=== PATIENT | female | born 1970 | race Caucasian/White ===

== ENCOUNTER → 2016-08-13 | Outpatient (CLI) | payer OTHER ==
--- NOTE | 2016-08-14 11:10 | WOMENS IMAGING REPORT ---
EXAM DESCRIPTION: BILAT DIAGNOSTIC MAMMO W/CAD; U/S BREAST UNILAT LIMITED COMPLETED DATE/TIME: 08/13/2016 11:40 am; 08/13/2016 12:30 pm REASON FOR STUDY: BILAT DIAG 3D N63; LT BREAST N63 UNSPECIFIED LUMP IN BREAST COMPARISON: Mammograms 08/26/2011,, 09/20/2015 TECHNIQUE: Standard craniocaudal and mediolateral oblique views of each breast recorded using digita l tomosynthesis acquisition. Additional left breast 90 mediolateral view, mammogram Left breast ultrasound LIMITATIONS: None. FINDINGS: RIGHT BREAST MASSES: No suspicious masses. CALCIFICATIONS: No new or suspicious calcifications. ARCHITECTURAL DISTORTION: None. DEVELOPING DENSITY: None. ASYMMETRY: None noted. OTHER: No other significant findings. LEFT BREAST MASSES: Patient presented with a palpable abnormality left upper outer quadrant. 8 cm from the nippl e in the upper outer quadrant, 2 to 3 o'clock position there is a well-circumscribed mammographic nod ule 11 mm in size. A 2nd, smaller nodule 6 mm in size about 10 to 12 cm from the nipple is also seen at the left breast 1 to 2 o'clock position. CALCIFICATIONS: No new or suspicious calcifications. ARCHITECTURAL DISTORTION: None. DEVELOPING DENSITY: None. ASYMMETRY: None noted. OTHER: No other significant finding. Read with the assistance of CAD: .[facility] - R2 Cenova Version 1.3 .[facility] Imaging - R2 Cenova Version 1.3 .[facility] Imaging - R2 Cenova Version 2.4 .[facility] [place] - R2 Cenova Version 2.4 .[facility] - R2 Quality Process Lead Version 9.2 Left breast ultrasound: In the area of palpable abnormality indicated by the patient, 2 to 3 o'clock position left breast abo ut 8 cm from the nipple there is a solid 1.1 x 0.9 mm nodule with internal color flow. This is indet erminate for malignancy. Ultrasound-guided core biopsy and post biopsy clip placement is recommended for followup. Immediately adjacent to the palpable solid nodule, a benign 4 mm simple cyst is present. More superiorly and medially in the left breast 1 to 2 o'clock position about 10 to 12 cm from the ni pple, a 2nd, smaller solid well-circumscribed nodule is present, 6 x 5 mm in size. This is also inde terminate for malignancy and ultrasound-guided core biopsy and post biopsy clip placement is recommen ded for followup. IMPRESSION: No mammographic/tomosynthesis evidence for malignancy right breast. 2 small solid nodules left upper outer quadrant for which ultrasound-guided core biopsy, post biopsy clip placement, and follow-up immediate two-view mammogram recommended BREAST DENSITY: c. The breasts are heterogeneously dense, which may obscure small masses. BIRAD: 4 Suspicious. Biopsy should be considered. RECOMMENDATION: RECOMMENDED FOLLOW UP: Left breast ultrasound-guided core biopsy of the 11 mm and 6 mm nodule, with post biopsy clip placement and follow-up two-view mammograms SPECIFIC INTERVENTION/IMAGING/CONSULTATION RECOMMENDED:As above COMMUNICATION:These results were discussed Katia VANESSA, 1100 hours 08/14/2016. COMMENT: The patient has been notified of the results by letter per SA requirements. Additional no tification policies are in place for contacting patient with suspicious or incomplete findings. Quality ID #[id number]: The [employer] recommends an annual screening mammogram for women aged 40 years or over. This facility utilizes a reminder system to ensure that all patients receive reminder letters, and/or direct phone calls for appointments. This includes reminders for routine scr eening mammograms, diagnostic mammograms, or other Breast Imaging Interventions when appropriate. Th is patient will be placed in the appropriate reminder system. The [employer] (ACR) has developed recommendations for screening MRI of the breast s in certain patient populations, to be used in conjunction with mammography. Breast MRI surveillanc e may be appropriate for women with more than 20% lifetime risk of developing breast cancer as deter mined by genetic testing, significant family history of the disease, or history of mantle radiation f or Hodgkins Disease. ACR Practice Guidelines 2008. DBT Technology DBT is a type of tomographic mammography. With conventional mammography, overlapping breast tissue ma y make lesions difficult to detect, even with good compression. DBT uses an x-ray tube that rotates a round the breast, taking images at different angles. These images are then combined to create thin sl ices of the breast that the radiologist can view as a 3D reconstruction. The [employer] unit can perform full-field digital mammograms (2D imaging); or DBT (3D imaging); or both, in a combination mode that quickly performs both the mammogram and the tomosynthesis scan while the breast is still compressed. PQRS 6045F: Fluoroscopic imaging is not utilized for breast tomosynthesis. TECHNICAL DOCUMENTATION: FINDING NUMBER: (1) ASSESSMENT: (1) JOB ID: [id number] [employer]- All Rights Reserved
--- NOTE | 2016-08-14 11:10 | WOMENS IMAGING REPORT ---
EXAM DESCRIPTION: BILAT DIAGNOSTIC MAMMO W/CAD; U/S BREAST UNILAT LIMITED COMPLETED DATE/TIME: 08/13/2016 11:40 am; 08/13/2016 12:30 pm REASON FOR STUDY: BILAT DIAG 3D N63; LT BREAST N63 UNSPECIFIED LUMP IN BREAST COMPARISON: Mammograms 08/26/2011,, 09/20/2015 TECHNIQUE: Standard craniocaudal and mediolateral oblique views of each breast recorded using digita l tomosynthesis acquisition. Additional left breast 90 mediolateral view, mammogram Left breast ultrasound LIMITATIONS: None. FINDINGS: RIGHT BREAST MASSES: No suspicious masses. CALCIFICATIONS: No new or suspicious calcifications. ARCHITECTURAL DISTORTION: None. DEVELOPING DENSITY: None. ASYMMETRY: None noted. OTHER: No other significant findings. LEFT BREAST MASSES: Patient presented with a palpable abnormality left upper outer quadrant. 8 cm from the nippl e in the upper outer quadrant, 2 to 3 o'clock position there is a well-circumscribed mammographic nod ule 11 mm in size. A 2nd, smaller nodule 6 mm in size about 10 to 12 cm from the nipple is also seen at the left breast 1 to 2 o'clock position. CALCIFICATIONS: No new or suspicious calcifications. ARCHITECTURAL DISTORTION: None. DEVELOPING DENSITY: None. ASYMMETRY: None noted. OTHER: No other significant finding. Read with the assistance of CAD: .[facility] - R2 Cenova Version 1.3 .[facility] Imaging - R2 Cenova Version 1.3 .[facility] Imaging - R2 Cenova Version 2.4 .[facility] [place] R2 Cenova Version 2.4 .[facility] - R2 Patient Case Coordinator Version 9.2 Left breast ultrasound: In the area of palpable abnormality indicated by the patient, 2 to 3 o'clock position left breast abo ut 8 cm from the nipple there is a solid 1.1 x 0.9 mm nodule with internal color flow. This is indet erminate for malignancy. Ultrasound-guided core biopsy and post biopsy clip placement is recommended for followup. Immediately adjacent to the palpable solid nodule, a benign 4 mm simple cyst is present. More superiorly and medially in the left breast 1 to 2 o'clock position about 10 to 12 cm from the ni pple, a 2nd, smaller solid well-circumscribed nodule is present, 6 x 5 mm in size. This is also inde terminate for malignancy and ultrasound-guided core biopsy and post biopsy clip placement is recommen ded for followup. IMPRESSION: No mammographic/tomosynthesis evidence for malignancy right breast. 2 small solid nodules left upper outer quadrant for which ultrasound-guided core biopsy, post biopsy clip placement, and follow-up immediate two-view mammogram recommended BREAST DENSITY: c. The breasts are heterogeneously dense, which may obscure small masses. BIRAD: 4 Suspicious. Biopsy should be considered. RECOMMENDATION: RECOMMENDED FOLLOW UP: Left breast ultrasound-guided core biopsy of the 11 mm and 6 mm nodule, with post biopsy clip placement and follow-up two-view mammograms SPECIFIC INTERVENTION/IMAGING/CONSULTATION RECOMMENDED:As above COMMUNICATION:These results were discussed Katia VANESSA, 1100 hours 08/14/2016. COMMENT: The patient has been notified of the results by letter per SA requirements. Additional no tification policies are in place for contacting patient with suspicious or incomplete findings. Quality ID #[id number]: The [employer] recommends an annual screening mammogram for women aged 40 years or over. This facility utilizes a reminder system to ensure that all patients receive reminder letters, and/or direct phone calls for appointments. This includes reminders for routine scr eening mammograms, diagnostic mammograms, or other Breast Imaging Interventions when appropriate. Th is patient will be placed in the appropriate reminder system. The [employer] (ACR) has developed recommendations for screening MRI of the breast s in certain patient populations, to be used in conjunction with mammography. Breast MRI surveillanc e may be appropriate for women with more than 20% lifetime risk of developing breast cancer as deter mined by genetic testing, significant family history of the disease, or history of mantle radiation f or Hodgkins Disease. ACR Practice Guidelines 2008. DBT Technology DBT is a type of tomographic mammography. With conventional mammography, overlapping breast tissue ma y make lesions difficult to detect, even with good compression. DBT uses an x-ray tube that rotates a round the breast, taking images at different angles. These images are then combined to create thin sl ices of the breast that the radiologist can view as a 3D reconstruction. The [email or web address] unit can perform full-field digital mammograms (2D imaging); or DBT (3D imaging); or both, in a combination mode that quickly performs both the mammogram and the tomosynthesis scan while the breast is still compressed. PQRS 6045F: Fluoroscopic imaging is not utilized for breast tomosynthesis. TECHNICAL DOCUMENTATION: FINDING NUMBER: (1) ASSESSMENT: (1) JOB ID: [id number] [employer]- All Rights Reserved
== END ==
LOC: WI 10:19
PROVIDERS: ATTEND Nurse Practitioner Primary Care
DX: N63 Unspecified lump in breast (principal)
CPT/HCPCS: 76642; G0204; 77066

== ENCOUNTER → 2016-09-03 | Day surgery (SDC) | payer OTHER ==
[~2016-09-03] MED LIST: LIDOCAINE 2% INJ (20 MG/ML) 20 ML MDV ONE
--- NOTE | 2016-09-09 16:22 | WOMENS IMAGING REPORT ---
EXAM DESCRIPTION: U/S BREAST BX; U/S BREAST BX EACH ADDT'L; LEFT DIG DX MAMMO NO CHG COMPLETED DATE/TIME: 09/03/2016 11:59 am; 09/03/2016 1:17 pm REASON FOR STUDY: 2 NODULES L BREAST; R92.8; R92.8 SECOND BIOPSY SITE SAME BREAST; R92.8 S/P LEFT US BX FOR CLIP PLACEMENT R92.8 OTH ABN AND INCONCLUSIVE FINDINGS ON DX IMAGING OF MARY COMPARISON: None. TECHNIQUE: The procedure was discussed with the patient and the patient agreed to proceed. The patient was scanned and the area of interest in the 1-2 o'clock position of the left breast was l ocalized. This correlates with the area of concern on prior imaging studies. This area was targeted for ultrasound-guided core biopsy. After sterile skin prep and 5 mL local lidocaine 1% for skin and deep tissue anesthesia, a 14 gauge c ore biopsy needle was used to obtain several cores of tissue from the lesion. Under ultrasound norma nce, a ribbon clip was placed in the areas sampled. Procedure was repeated in similar fashion for a 2nd similar-appearing lesion in the same quadrant. T here were no immediate post-procedure complications. MAMMOGRAM: Post-procedure two view mammogram was acquired in the digital mammogram suite. The clip wa s in the expected location. No significant hematoma. 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 Pathology is concordant. LIMITATIONS: None. FINDINGS: Ultrasound guided breast biopsy as described above. POST PROCEDURE MAMMOGRAMS FOR MARKER PLACEMENT: Yes IMPRESSION: ULTRASOUND-GUIDED CORE BIOPSY OF THE LEFT BREAST YIELDS A DIAGNOSIS OF BENIGN FIBROADENO MA BOTH SITES. COMMENT: COMMUNICATION: The patient's provider has been notified of the findings. The provider will discuss the findings with the patient. Patient medication list reviewed: Yes- Quality ID# [id number]:Eligible professional attests to documenting i n the medical record they obtained, updated, or reviewed the patient's current medications. TECHNICAL DOCUMENTATION: JOB ID: [id number] All Rights Reserved
== END ==
LOC: WI 12:44
PROVIDERS: ATTEND Nurse Practitioner Primary Care
PROC: 0HBU3ZX Excision of Left Breast, Percutaneous Approach, Diagnostic (ICD-10-PCS; principal; 2016-09-03)
DX: D24.2 Benign neoplasm of left breast (principal)
CPT/HCPCS: 88305 ×2; 88342; 19083; 19084; J3490

== ENCOUNTER → 2016-10-05 | Outpatient (CLI) | payer OTHER | LOC: OD 17:57 | PROVIDERS: ATTEND Nurse Practitioner Primary Care | DX: N93.8 Other specified abnormal uterine and vaginal bleeding (principal) | CPT/HCPCS: 88305 ==

== ENCOUNTER → 2017-09-23 | Outpatient (CLI) | payer OTHER ==
--- NOTE | 2017-09-23 16:20 | WOMENS IMAGING REPORT ---
EXAM DESCRIPTION: 3D SCREENING MAMMO BILAT COMPLETED DATE/TIME: 09/23/2017 9:02 am REASON FOR STUDY: SCREENING MAMMO Z12.31 ENCNTR SCREEN MAMMOGRAM FOR MALIGNANT NEOPLASM OF MARY COMPARISON: 2011 to 2016 TECHNIQUE: Standard craniocaudal and mediolateral oblique views of each breast recorded using digita l acquisition and breast tomosynthesis. LIMITATIONS: None. FINDINGS: Findings present which are benign by mammographic criteria. No suspicious masses, calcifi cations or architectural distortion. Pertinent benign findings: Biopsied mass in the left breast. Read with the assistance of CAD. .[facility] - R2 Cenova Version 1.3 .[facility] Imaging - R2 Cenova Version 1.3 .[facility] Imaging - R2 Cenova Version 2.4 .[facility] [place] - R2 Cenova Version 2.4 .[facility] - R2 Avionics Integration Engineer Version 9.2 Benign mammographic findings may include one or more of the following: Smooth masses, popcorn/rim/co arse calcifications, asymmetries, post-procedure changes, and lesions with long-standing stability. IMPRESSION: BENIGN MAMMOGRAPHIC FINDINGS. BIRADS 2 BREAST DENSITY: d. The breasts are extremely dense, which lowers the sensitivity of mammography. BIRAD: 2 BENIGN FINDING(S) RECOMMENDATION: RECOMMENDATION: ROUTINE SCREENING COMMENT: The patient has been notified of the results by letter per SA requirements. Additional no tification policies are in place for contacting patient with suspicious or incomplete findings. Quality ID #[id number]: The [employer] recommends an annual screening mammogram for women aged 40 years or over. This facility utilizes a reminder system to ensure that all patients receive reminder letters, and/or direct phone calls for appointments. This includes reminders for routine scr eening mammograms, diagnostic mammograms, or other Breast Imaging Interventions when appropriate. Th is patient will be placed in the appropriate reminder system. The [employer] (ACR) has developed recommendations for screening MRI of the breast s in certain patient populations, to be used in conjunction with mammography. Breast MRI surveillanc e may be appropriate for women with more than 20% lifetime risk of developing breast cancer as deter mined by genetic testing, significant family history of the disease, or history of mantle radiation f or Hodgkins Disease. ACR Practice Guidelines 2008. DBT Technology DBT is a type of tomographic mammography. With conventional mammography, overlapping breast tissue ma y make lesions difficult to detect, even with good compression. DBT uses an x-ray tube that rotates a round the breast, taking images at different angles. These images are then combined to create thin sl ices of the breast that the radiologist can view as a 3D reconstruction. The [email or web address] unit can perform full-field digital mammograms (2D imaging); or DBT (3D imaging); or both, in a combination mode that quickly performs both the mammogram and the tomosynthesis scan while the breast is still compressed. PQRS 6045F: Fluoroscopic imaging is not utilized for breast tomosynthesis. TECHNICAL DOCUMENTATION: FINDING NUMBER: (1) ASSESSMENT: (1) JOB ID: [id number] [employer] Kang- All Rights Reserved Reading location - IP/workstation name: [email or web address]
== END ==
LOC: WI 09:22
PROVIDERS: ATTEND Nurse Practitioner Primary Care
DX: Z12.31 Encounter for screening mammogram for malignant neoplasm of breast (principal)
CPT/HCPCS: 77063; 77067

== ENCOUNTER → 2018-12-30 | Outpatient (CLI) | payer SELFPAY ==
--- NOTE | 2018-12-30 10:49 | WOMENS IMAGING REPORT ---
EXAM DESCRIPTION: 3D SCREENING MAMMO BILAT COMPLETED DATE/TIME: 12/30/2018 9:13 am REASON FOR STUDY: Z80.3 FAMILY HISTORY OF BREAST CANCER Z12.31 ENCNTR SCREEN MAMMOGRAM FOR MALIGNAN T NEOPLASM OF MARY COMPARISON: 2015 to 2017 EXAM PARAMETERS: Views: Standard craniocaudal and mediolateral oblique views of each breast recorded using digital acquisition and breast tomosynthesis. Read with the assistance of CAD. .[facility] - [employer] Hardware Engineering Manager Version 9.2 LIMITATIONS: None. FINDINGS: No suspicious masses, suspicious calcifications or architectural distortion. No areas of c oncern. IMPRESSION: NEGATIVE MAMMOGRAM. BIRADS 1. BREAST DENSITY: d. The breasts are extremely dense, which lowers the sensitivity of mammography. BIRAD: ASSESSMENT: 1 NEGATIVE RECOMMENDATION: ROUTINE SCREENING COMMENT: The patient has been notified of the results by letter per MQSA requirements. Additional no tification policies are in place for contacting patient with suspicious or incomplete findings. Quality ID #[id number]: The [employer] recommends an annual screening mammogram for women aged 40 years or over. This facility utilizes a reminder system to ensure that all patients receive reminder letters, and/or direct phone calls for appointments. This includes reminders for routine scr eening mammograms, diagnostic mammograms, or other Breast Imaging Interventions when appropriate. Th is patient will be placed in the appropriate reminder system. TECHNICAL DOCUMENTATION: FINDING NUMBER: (1) ASSESSMENT: (1) JOB ID: [id number] [employer]- All Rights Reserved Reading location - IP/workstation name: [email or web address]
== END ==
LOC: WI 08:55
PROVIDERS: ATTEND Nurse Practitioner Primary Care
DX: Z12.31 Encounter for screening mammogram for malignant neoplasm of breast (principal)
CPT/HCPCS: 77063; 77067

== ENCOUNTER → 2020-01-09 | Outpatient (CLI) | payer OTHER ==
--- NOTE | 2020-01-09 11:19 | WOMENS IMAGING REPORT ---
EXAM DESCRIPTION: 3D SCREENING MAMMO BILAT IMAGES COMPLETED DATE/TIME: 01/09/2020 10:36 am REASON FOR STUDY: Z12.31 ENCNTR SCREEN MAMMOGRAM FOR MALIGNANT NEOPLASM OF BREAST Z12.31 ENCNTR SCR EEN MAMMOGRAM FOR MALIGNANT NEOPLASM OF MARY COMPARISON: Priors back to 2011 EXAM PARAMETERS: Standard craniocaudal and mediolateral oblique views of each breast recorded using digital acquisition and breast tomosynthesis. Read with the assistance of CAD. .[facility] - R2 Astronomy Instructor Version 9.2 LIMITATIONS: None. FINDINGS: Findings present which are benign by mammographic criteria. No suspicious masses, calcific ations or architectural distortion. Pertinent benign findings: Left fibroadenomas. Benign mammographic findings may include one or more of the following: Smooth masses, popcorn/rim/coa rse calcifications, asymmetries, post-procedure changes, and lesions with long-standing stability. IMPRESSION: BENIGN MAMMOGRAPHIC FINDINGS. BIRADS 2 BREAST DENSITY: c. The breasts are heterogeneously dense, which may obscure small masses. BIRAD: ASSESSMENT: 2 BENIGN FINDING(S) RECOMMENDATION: ROUTINE SCREENING COMMENT: The patient has been notified of the results by letter per SA requirements. Additional no tification policies are in place for contacting patient with suspicious or incomplete findings. Quality ID #[id number]: The [employer] recommends an annual screening mammogram for women aged 40 years or over. This facility utilizes a reminder system to ensure that all patients receive reminder letters, and/or direct phone calls for appointments. This includes reminders for routine scr eening mammograms, diagnostic mammograms, or other Breast Imaging Interventions when appropriate. Th is patient will be placed in the appropriate reminder system. TECHNICAL DOCUMENTATION: FINDING NUMBER: (1) ASSESSMENT: (1) JOB ID: [id number] 2010 [employer]- All Rights Reserved Reading location - IP/workstation name: [email or web address]-
== END ==
LOC: WI 10:09
PROVIDERS: ATTEND Nurse Practitioner Primary Care
DX: Z12.31 Encounter for screening mammogram for malignant neoplasm of breast (principal)
CPT/HCPCS: 77063; 77067